=== PATIENT | female | born 1990 | race Caucasian/White ===

== ENCOUNTER 2020-07-21 | Emergency (ER) | payer BC ==
[2020-07-21] MEDS ORDERED: NAPROXEN500 MG PO (18:05)
== END 2020-07-21 19:07 | disposition home or self-care (01) | DRG 563 ==
DX: S53.401A Unspecified sprain of right elbow, initial encounter (principal); W01.0XXA Fall on same level from slipping, tripping and stumbling without subsequent striking against object, initial encounter